=== PATIENT | female | born 1950 | race Caucasian/White ===

== ENCOUNTER → 2017-04-06 | Outpatient (CLI) | payer MEDICARE ==
[~2017-04-06] MED LIST: ACET-1600 PO; ASPI-496 PO; CALC0.25 PO; CALC0.5C PO; CARI250T PO; CARI350T14 PO; CETI10TA18 PO; CHOL5000 PO; CIPR500T87 PO; CYAN100014 PO; DIPH25CA61 PO; DOXE4VIA IV; EPOE3000 IV; EVE1000C3 PO; FERR210T PO; FLAX100029 PO; FOLI0.4T2 PO; IRON PO; LINA5TAB PO; MELA3TAB37 PO; METO50TA82 PO; MONT10TA6 PO; MULT-26 PO; MV-M1TAB16 PO; PYRI100T2 PO; SIMV20TA3 PO; SODI1TAB11 PO; SODIUM BICARBONATE PO; VITAMIN D3 PO; ZOLP10TA5 PO; ZOLPIDEM PO; [UNRECOGNIZED DRUG - OTHER] PO
== END | disposition home or self-care (01) ==
LOC: STAR 10:07
PROVIDERS: ATTEND Urology
DX: Z01.818 Encounter for other preprocedural examination (principal); R94.31 Abnormal electrocardiogram [ECG] [EKG]; N13.30 Unspecified hydronephrosis
CPT/HCPCS: 93005

== ENCOUNTER 2017-04-17 05:55 | Day surgery (SDC) | payer MEDICARE ==
[~2017-04-17] VITALS: Ht 175.3 cm; Wt 75.0 kg
[2017-04-17] MEDS ORDERED: SODIUM CHLORIDE 0.9% 1,000 ML IV SCH (06:27)
[2017-04-17 06:28] VITALS: BP 114/69
[2017-04-17] MEDS ORDERED: LIDOCAINE 1%, 2ML SQ PRN (07:00)
[2017-04-17] MEDS ORDERED: SCOPOLAMINE PATCH, 1.5MG PATCH.TD72 TD ONE ×2 (07:04)
[2017-04-17] MEDS ORDERED: FENTANYL PF 250 MCG/5ML ONE (07:26)
[2017-04-17] MEDS ORDERED: ONDANSETRON 2MG/ML, 2ML IVPush PRN (07:30)
[2017-04-17] MEDS ORDERED: HYDROmorphone 1 MG/ML, 1ML IV PRN (07:30)
[2017-04-17] MEDS ORDERED: ACETAMINOPHEN 325 MG TABLET PO PRN (07:30)
[2017-04-17] MEDS ORDERED: PROMETHAZINE 25 MG/ML, 1ML IV PRN (07:30)
[2017-04-17] MEDS ORDERED: OXYcodone 5 MG/5 ML ORAL.SOL UDC PO PRN (07:30)
[2017-04-17] MEDS ORDERED: HYDROcodone/APAP 7.5-325MG/15ML UDC PO PRN (07:30)
[2017-04-17] MEDS ORDERED: hydrALAzine 20 MG/ML, 1ML IV PRN (07:30)
[2017-04-17] MEDS ORDERED: LABETALOL 5MG/ML, 20ML IV PRN (07:30)
[2017-04-17] MEDS ORDERED: FENTANYL PF 100 MCG/2ML IV PRN (07:30)
[2017-04-17] MEDS ORDERED: EPHEDRINE 50 MG/ML, 1ML IVPush PRN (07:30)
[2017-04-17] MEDS ORDERED: METOCLOPRAMIDE 5 MG/ML, 2ML IV PRN (07:30)
[2017-04-17] MEDS ORDERED: PHENYLEPHRINE 10 MG/ML ONE (07:38)
[2017-04-17] MEDS ORDERED: PROPOFOL 10 MG/ML, 20ML ONE (07:38)
[2017-04-17] MEDS ORDERED: CEFAZOLIN 1,000 MG ONE (07:38)
[2017-04-17] MEDS ORDERED: PROMETHAZINE 25 MG/ML, 1ML ONE (08:23)
[2017-04-17] MEDS ORDERED: OXYcodone 5 MG/5 ML ORAL.SOL UDC ONE (08:56)
[2017-04-17] MEDS ORDERED: FENTANYL PF 100 MCG/2ML ONE (08:56)
== END 2017-04-17 10:30 | disposition home or self-care (01) ==
LOC: OUT 05:55
PROVIDERS: ATTEND Urology
DX: Z46.6 Encounter for fitting and adjustment of urinary device (principal); N13.30 Unspecified hydronephrosis; E11.22 Type 2 diabetes mellitus with diabetic chronic kidney disease; I12.0 Hypertensive chronic kidney disease with stage 5 chronic kidney disease or end stage renal disease; N18.6 End stage renal disease; Z99.2 Dependence on renal dialysis; E78.5 Hyperlipidemia, unspecified; E11.40 Type 2 diabetes mellitus with diabetic neuropathy, unspecified; G56.22 Lesion of ulnar nerve, left upper limb; N32.81 Overactive bladder; Z91.030 Bee allergy status; Z91.011 Allergy to milk products; Z91.040 Latex allergy status; Z91.048 Other nonmedicinal substance allergy status; J45.909 Unspecified asthma, uncomplicated; Z87.440 Personal history of urinary (tract) infections; Z98.84 Bariatric surgery status; Z90.710 Acquired absence of both cervix and uterus; Z98.890 Other specified postprocedural states; Z87.442 Personal history of urinary calculi; Z87.891 Personal history of nicotine dependence; Z72.89 Other problems related to lifestyle; Z82.49 Family history of ischemic heart disease and other diseases of the circulatory system; Z84.1 Family history of disorders of kidney and ureter
CPT/HCPCS: 36415; 52332; 74000; 76000; 80047; 82962; 85610; 85730; C2617; J0690; J2370; J2550; J2704; J3010; J3490; J7030; 76001

== ENCOUNTER → 2017-07-17 | Outpatient (CLI) | payer MEDICARE ==
[~2017-07-17] MED LIST changes: -MELA3TAB37 PO; +MELA3TAB62 PO
== END ==
LOC: STAR 11:49
PROVIDERS: ATTEND Internal Medicine Nephrology
DX: Z01.818 Encounter for other preprocedural examination (principal); R94.31 Abnormal electrocardiogram [ECG] [EKG]; N18.6 End stage renal disease
CPT/HCPCS: 93005

== ENCOUNTER → 2017-07-27 | Outpatient (CLI) | payer MEDICARE ==
[~2017-07-27] MED LIST changes: +REGADENOSON 0.4 MG/5 ML SYRINGE ONE
== END | disposition home or self-care (01) ==
LOC: CFH 07:12
PROVIDERS: ATTEND Internal Medicine Nephrology
DX: Z12.31 Encounter for screening mammogram for malignant neoplasm of breast (principal); Z01.818 Encounter for other preprocedural examination; N18.6 End stage renal disease; I45.10 Unspecified right bundle-branch block; E11.22 Type 2 diabetes mellitus with diabetic chronic kidney disease; I35.8 Other nonrheumatic aortic valve disorders; Z87.891 Personal history of nicotine dependence; Z80.3 Family history of malignant neoplasm of breast; Z94.0 Kidney transplant status
CPT/HCPCS: 78452; 93017; 93306; A9502; G0202; J2785

== ENCOUNTER 2017-09-14 07:27 | Day surgery (SDC) | payer MEDICARE ==
[~2017-09-14] VITALS: Ht 175.3 cm; Wt 80.7 kg
[~2017-09-14 07:27] MED LIST changes: -REGADENOSON 0.4 MG/5 ML SYRINGE ONE
[2017-09-14] MEDS ORDERED: LIDOCAINE 1%, 2ML ONE (08:14)
[2017-09-14 08:47] VITALS: BP 151/81
[2017-09-14] MEDS ORDERED: ACETAMINOPHEN 325 MG TABLET PO PRN (09:00)
[2017-09-14] MEDS ORDERED: ALBUTEROL/IPRATROPIUM 2.5MG/0.5MG, 3 ML NPPB PRN (09:00)
[2017-09-14] MEDS ORDERED: HYDROmorphone 1 MG/ML, 1ML IV PRN (09:00)
[2017-09-14] MEDS ORDERED: LIDOCAINE 1%, 2ML INFIL ONE (09:00)
[2017-09-14] MEDS ORDERED: PROMETHAZINE 25 MG/ML, 1ML IV PRN (09:00)
[2017-09-14] MEDS ORDERED: FENTANYL PF 100 MCG/2ML IV PRN (09:00)
[2017-09-14] MEDS ORDERED: MEPERIDINE/PF 25MG/0.5ML IVPush PRN (09:00)
[2017-09-14] MEDS ORDERED: MIDAZOLAM 1 MG/ML, 2ML IV PRN (09:00)
[2017-09-14] MEDS ORDERED: OXYcodone 5 MG/5 ML ORAL.SOL UDC PO PRN (09:00)
[2017-09-14] MEDS ORDERED: LABETALOL 5MG/ML, 20ML IV PRN (09:00)
[2017-09-14] MEDS ORDERED: hydrALAzine 20 MG/ML, 1ML IV PRN (09:00)
[2017-09-14] MEDS ORDERED: ONDANSETRON 2MG/ML, 2ML IVPush PRN (09:00)
[2017-09-14] MEDS ORDERED: SODIUM CHLORIDE 0.9% 1,000 ML IV SCH (09:00)
[2017-09-14] MEDS ORDERED: ONDANSETRON 2MG/ML, 2ML ONE (09:04)
[2017-09-14] MEDS ORDERED: PROPOFOL 10 MG/ML, 20ML ONE (09:04)
[2017-09-14 09:17] LABS: HEMATOCRIT 32.8 % (34.6-47.8); WHITE BLOOD COUNT 6.1 x10^3/uL (3.4-10)
[2017-09-14 09:20] LABS: ASPARTATE AMINO TRANSFERASE 15 U/L (15-37); BLOOD UREA NITROGEN 60 mg/dL (7-18)
== END 2017-09-14 10:30 ==
LOC: OUT 07:27
PROVIDERS: ATTEND Specialist
DX: D12.2 Benign neoplasm of ascending colon (principal); D12.8 Benign neoplasm of rectum; E78.5 Hyperlipidemia, unspecified; E11.22 Type 2 diabetes mellitus with diabetic chronic kidney disease; I12.0 Hypertensive chronic kidney disease with stage 5 chronic kidney disease or end stage renal disease; N18.6 End stage renal disease; Z98.890 Other specified postprocedural states; Z90.710 Acquired absence of both cervix and uterus; Z98.84 Bariatric surgery status; Z87.891 Personal history of nicotine dependence
CPT/HCPCS: 36415; 45380; 45385; 80053; 85025; 85610; 85730; 88305; J2405; J2704; J7030

== ENCOUNTER → 2017-11-15 | Outpatient (CLI) | payer MEDICARE ==
[~2017-11-15] MED LIST changes: -CALC0.5C PO; +CALC0.5C9 PO
[2017-11-15 09:37] LABS: BASOPHILS # (AUTO) 0.04 x10^3/uL (0-0.1); BASOPHILS % (AUTO) 1 % (0-1); EOSINOPHILS # (AUTO) 0.26 x10^3/uL (0-0.4); EOSINOPHILS % (AUTO) 5 % (1-7); LYMPHOCYTES # (AUTO) 0.99 x10^3/uL (1-3.4); LYMPHOCYTES % (AUTO) 18 % (22-44); MD NO; MEAN CORPUSCULAR HEMOGLOBIN 30.9 pg (27.0-34.8); MEAN CORPUSCULAR HGB CONC 33.3 g/dL (32.4-35.8); MEAN CORPUSCULAR VOLUME 92.8 fL (80-100); MEAN PLATELET VOLUME 7.4 fL (7.4-10.4); MONOCYTES # (AUTO) 0.46 x10^3/uL (0.2-0.8); MONOCYTES % (AUTO) 8 % (2-9); NEUTROPHILS # (AUTO) 3.85 x10^3/uL (1.8-6.8); NEUTROPHILS % (AUTO) 69 % (42-75); PLATELET COUNT 319 x10^3/uL (130-400); RED BLOOD COUNT 3.79 x10^6/uL (3.82-5.3); RED CELL DISTRIBUTION WIDTH 14.3 % (9.6-15.2)
[2017-11-15 09:44] LABS: CULTURE INDICATED? YES; MICROSCOPIC INDICATED
[2017-11-15 09:45] LABS: INTERNATIONAL NORMALIZED RATIO 0.92 (0.93-1.1); PROTHROMBIN TIME 9.6 Seconds (9.6-11.5)
[2017-11-15 09:52] LABS: ANION GAP 10 mmol/L (5-15); CHLORIDE 102 mmol/L (98-107)
[2017-11-15 09:58] LABS: ALANINE AMINOTRANSFERASE 19 U/L (12-78); ALKALINE PHOSPHATASE 163 U/L (45-117); BILIRUBIN,TOTAL 0.4 mg/dL (0.2-1.0); CREATININE 5.88 mg/dL (0.55-1.02)
== END ==
LOC: STAR 08:48
PROVIDERS: ATTEND Urology
DX: Z01.818 Encounter for other preprocedural examination (principal); N18.9 Chronic kidney disease, unspecified; N13.30 Unspecified hydronephrosis; R94.31 Abnormal electrocardiogram [ECG] [EKG]
CPT/HCPCS: 36415; 80053; 81001; 85025; 85610; 85730; 87086; 93005

== ENCOUNTER 2017-11-19 08:00 | Day surgery (SDC) | payer MEDICARE ==
[~2017-11-19] VITALS: Ht 170.2 cm; Wt 79.4 kg
[2017-11-19] MEDS ORDERED: LACTATED RINGERS 1,000 ML IV SCH (08:38)
[2017-11-19] MEDS ORDERED: LIDOCAINE 1%, 2ML ONE (08:39)
[2017-11-19] MEDS ORDERED: SODIUM CHLORIDE 0.9% 1,000 ML IV SCH (09:19)
[2017-11-19 09:24] VITALS: BP 146/71
[2017-11-19 10:12] LABS: ANION GAP 12 mmol/L (5-15); CHLORIDE 102 mmol/L (98-107); CREATININE 5.51 mg/dL (0.55-1.02)
[2017-11-19] MEDS ORDERED: MIDAZOLAM 1 MG/ML, 2ML ONE (10:30)
[2017-11-19] MEDS ORDERED: PROPOFOL 10 MG/ML, 20ML ONE (10:30)
[2017-11-19] MEDS ORDERED: LIDOCAINE-MPF 2% ,5ML ONE (10:30)
[2017-11-19] MEDS ORDERED: ONDANSETRON 2MG/ML, 2ML ONE (10:38)
[2017-11-19] MEDS ORDERED: DEXAMETHASONE 4 MG/ML, 1ML ONE ×2 (10:38)
[2017-11-19] MEDS ORDERED: CEFAZOLIN 1,000 MG ONE (10:41)
[2017-11-19] MEDS ORDERED: OMNIPAQUE 350 MG/ML, 50 ML BOTTLE IV ONE (11:07)
[2017-11-19] MEDS ORDERED: ONDANSETRON 2MG/ML, 2ML IVPush PRN (11:30)
[2017-11-19] MEDS ORDERED: ACETAMINOPHEN 325 MG TABLET PO PRN (11:30)
[2017-11-19] MEDS ORDERED: morphine SULFATE 10 MG/ML, 1ML IV PRN (11:30)
[2017-11-19] MEDS ORDERED: FENTANYL PF 100 MCG/2ML IV PRN (11:30)
[2017-11-19] MEDS ORDERED: HYDROcodone/APAP 7.5-325MG/15ML UDC PO PRN (11:30)
[2017-11-19] MEDS ORDERED: FENTANYL PF 100 MCG/2ML ONE (11:33)
[2017-11-19] MEDS ORDERED: OMNIPAQUE 350 MG/ML, 50 ML BOTTLE ONE (11:43)
[2017-11-19] MEDS ORDERED: LABETALOL 5MG/ML, 20ML ONE (12:09)
[2017-11-19] MEDS ORDERED: LABETALOL 5MG/ML, 20ML IVPush PRN (12:30)
== END 2017-11-19 14:10 ==
LOC: OUT 08:00
PROVIDERS: ATTEND Urology
DX: N13.30 Unspecified hydronephrosis (principal); E78.5 Hyperlipidemia, unspecified; E11.22 Type 2 diabetes mellitus with diabetic chronic kidney disease; I12.0 Hypertensive chronic kidney disease with stage 5 chronic kidney disease or end stage renal disease; J45.909 Unspecified asthma, uncomplicated; Z87.440 Personal history of urinary (tract) infections; Z99.2 Dependence on renal dialysis
CPT/HCPCS: 36415; 52310; 74420; 80048; C1758; C1769; J0690; J1100; J2250; J2405; J2704; J3010; J3490; J7030; Q9967

== ENCOUNTER 2018-06-28 08:01 | Inpatient (IN) | payer MEDICARE ==
[~2018-06-28] VITALS: Ht 175.3 cm; Wt 80.4 kg
[~2018-06-28 08:01] MED LIST changes: +ONDA4TAB10 PO
[2018-06-28] MEDS ORDERED: SODIUM CHLORIDE FLUSH 10ML SYR IVF ONE (08:30)
[2018-06-28] MEDS ORDERED: ONDANSETRON 2MG/ML, 2ML IVPush ONE (08:30)
[2018-06-28] MEDS ORDERED: ONDANSETRON ODT 4 MG ONE (08:45)
[2018-06-28] MEDS ORDERED: HYDROmorphone 2 MG/ML, 1ML ONE (08:47)
[2018-06-28] MEDS: HYDROmorphone 2 MG/ML, 1ML IVPush PRN ×2 (08:54→09:15)
[2018-06-28 09:05] LABS: MICROSCOPIC INDICATED
[2018-06-28 09:10] LABS: BASOPHILS # (AUTO) 0.03 x10^3/uL (0-0.1); BASOPHILS % (AUTO) 0 % (0-1); EOSINOPHILS # (AUTO) 0.11 x10^3/uL (0-0.4); EOSINOPHILS % (AUTO) 1 % (1-7); LYMPHOCYTES # (AUTO) 0.77 x10^3/uL (1-3.4); LYMPHOCYTES % (AUTO) 9 % (22-44); MD NO; MEAN CORPUSCULAR HEMOGLOBIN 30.6 pg (27.0-34.8); MEAN CORPUSCULAR HGB CONC 33.6 g/dL (32.4-35.8); MEAN CORPUSCULAR VOLUME 91.1 fL (80-100); MEAN PLATELET VOLUME 7.6 fL (7.4-10.4); MONOCYTES % (AUTO) 6 % (2-9); NEUTROPHILS # (AUTO) 6.92 x10^3/uL (1.8-6.8); NEUTROPHILS % (AUTO) 83 % (42-75); PLATELET COUNT 327 x10^3/uL (130-400); RED BLOOD COUNT 3.53 x10^6/uL (3.82-5.3); RED CELL DISTRIBUTION WIDTH 14.1 % (9.6-15.2)
[2018-06-28 09:13] LABS: CULTURE INDICATED? YES
[2018-06-28 09:53] LABS: CALCIUM 9.5 mg/dL (8.5-10.1)
[2018-06-28 09:58] LABS: ANION GAP 16 mmol/L (5-15); CHLORIDE 102 mmol/L (98-107); CREATININE 9.36 mg/dL (0.55-1.02)
[2018-06-28] MEDS ORDERED: CEFTRIAXONE PMX 1GM/50ML 50 ML IV ONE (10:00)
[2018-06-28 10:02] LABS: ALANINE AMINOTRANSFERASE 16 U/L (12-78); ALKALINE PHOSPHATASE 115 U/L (45-117); BILIRUBIN,TOTAL 0.4 mg/dL (0.2-1.0); TOTAL PROTEIN 8.7 g/dL (6.4-8.2)
[2018-06-28] MEDS ORDERED: CEFTRIAXONE PMX 1GM/50ML 50 ML ONE (10:19)
[2018-06-28] MEDS ORDERED: MONT10TA6 PO (12:05)
[2018-06-28] MEDS ORDERED: CINA30TA2 PO (12:06)
[2018-06-28] MEDS ORDERED: TRAM50TA2 PO (12:06)
[2018-06-28] MEDS ORDERED: CYAN1TAB29 PO (12:10)
[2018-06-28] MEDS ORDERED: CHOL5000 PO (12:11)
[2018-06-28] MEDS ORDERED: FERR140T2 PO (12:14)
[2018-06-28] MEDS ORDERED: SODIUM CHLORIDE 0.9% 1,000 ML IV SCH (12:33)
[2018-06-28 12:58] VITALS: BP 170/72
[2018-06-28] MEDS ORDERED: hydrALAzine 20 MG/ML, 1ML IV PRN (13:00)
[2018-06-28] MEDS ORDERED: ONDANSETRON ODT 4 MG PO PRN (13:00)
[2018-06-28] MEDS ORDERED: CEFTRIAXONE 1,000 MG in SODIUM CHLORIDE 0.9% 50 ML IV SCH (13:00)
[2018-06-28] MEDS ORDERED: ACETAMINOPHEN 325 MG TABLET PO PRN ×2 (13:00→15:30)
[2018-06-28] MEDS ORDERED: POLYETHYLENE GLYCOL 17 GM PACKET PO PRN (13:00)
[2018-06-28] MEDS: MONTELUKAST 10 MG TABLET PO SCH (13:00)
[2018-06-28] MEDS ORDERED: morphine SULFATE 10 MG/ML, 1ML IVPush PRN (13:00)
[2018-06-28] MEDS ORDERED: LABETALOL 5MG/ML, 20ML IVPush PRN (13:00)
[2018-06-28] MEDS ORDERED: ONDANSETRON 2MG/ML, 2ML IVPush PRN (13:00)
[2018-06-28] MEDS ORDERED: OXYcodone/APAP 5/325MG TABLET PO PRN (13:00)
[2018-06-28] MEDS ORDERED: DOCUSATE 100 MG CAPSULE PO PRN (13:00)
[2018-06-28] MEDS ORDERED: FENTANYL PF 250 MCG/5ML ONE (14:19)
[2018-06-28] MEDS ORDERED: PROPOFOL 10 MG/ML, 20ML ONE (14:20)
[2018-06-28] MEDS ORDERED: ONDANSETRON 2MG/ML, 2ML ONE ×2 (14:50→15:31)
[2018-06-28] MEDS ORDERED: PROPOFOL 50 ML ONE (15:01)
[2018-06-28] MEDS ORDERED: OMNIPAQUE 350 MG/ML, 50 ML BOTTLE INJ ONE (15:30)
[2018-06-28] MEDS ORDERED: MIDAZOLAM 1 MG/ML, 2ML IV PRN (15:30)
[2018-06-28] MEDS ORDERED: ONDANSETRON ODT 8 MG PO PRN (15:30)
[2018-06-28] MEDS ORDERED: OXYcodone 5 MG/5 ML ORAL.SOL UDC PO PRN (15:30)
[2018-06-28] MEDS ORDERED: PROMETHAZINE 25 MG SUPP PR PRN (15:30)
[2018-06-28] MEDS ORDERED: PROMETHAZINE 12.5 MG SUPP PR PRN (15:30)
[2018-06-28] MEDS ORDERED: MORPHINE SULFATE 4 MG/ML, 1ML IVPush PRN (15:30)
[2018-06-28] MEDS ORDERED: DIPHENHYDRAMINE 50 MG/ML, 1ML IVPush PRN (15:30)
[2018-06-28] MEDS ORDERED: PROMETHAZINE 25 MG/ML, 1ML IV PRN (15:30)
[2018-06-28] MEDS ORDERED: FENTANYL PF 100 MCG/2ML IV PRN (15:30)
[2018-06-28] MEDS ORDERED: OMNIPAQUE 350 MG/ML, 50 ML BOTTLE ONE (16:27)
[2018-06-28 16:30] VITALS: BP 154/73
[2018-06-28] MEDS: SODIUM CHLORIDE 0.9% 1,000 ML IV SCH (20:00)
[2018-06-28] MEDS ORDERED: ZOLPIDEM 10MG TABLET PO SCH (21:00)
[2018-06-28] MEDS ORDERED: LINAGLIPTIN 5 MG TAB PO SCH (21:00)
[2018-06-28 21:10] VITALS: BP 123/61
[2018-06-28] MEDS: SODIUM BICARBONATE 650 MG TABLET PO SCH (22:17)
[2018-06-28] MEDS: PHENAZOPYRIDINE 200 MG TABLET PO SCH (22:17)
[2018-06-28] MEDS: PYRIDOXINE 50MG TABLET PO SCH (22:20)
[2018-06-28] MEDS: FERROUS SULFATE 325 MG TABLET PO SCH (23:05)
[2018-06-29 00:18] VITALS: BP 123/68
[2018-06-29 04:19] VITALS: BP 152/74
[2018-06-29 05:20] LABS: ANION GAP 11 mmol/L (5-15); CHLORIDE 105 mmol/L (98-107)
[2018-06-29 05:21] LABS: CREATININE 9.77 mg/dL (0.55-1.02)
[2018-06-29 05:28] LABS: BASOPHILS # (AUTO) 0.03 x10^3/uL (0-0.1); BASOPHILS % (AUTO) 0 % (0-1); EOSINOPHILS # (AUTO) 0.23 x10^3/uL (0-0.4); EOSINOPHILS % (AUTO) 4 % (1-7); LYMPHOCYTES # (AUTO) 1.22 x10^3/uL (1-3.4); LYMPHOCYTES % (AUTO) 19 % (22-44); MD NO; MEAN CORPUSCULAR HEMOGLOBIN 31.1 pg (27.0-34.8); MEAN CORPUSCULAR HGB CONC 33.6 g/dL (32.4-35.8); MEAN CORPUSCULAR VOLUME 92.6 fL (80-100); MEAN PLATELET VOLUME 7.6 fL (7.4-10.4); MONOCYTES # (AUTO) 0.84 x10^3/uL (0.2-0.8); MONOCYTES % (AUTO) 13 % (2-9); NEUTROPHILS # (AUTO) 4.01 x10^3/uL (1.8-6.8); NEUTROPHILS % (AUTO) 63 % (42-75); PLATELET COUNT 269 x10^3/uL (130-400); RED BLOOD COUNT 2.95 x10^6/uL (3.82-5.3); RED CELL DISTRIBUTION WIDTH 14.1 % (9.6-15.2)
[2018-06-29 07:27] VITALS: BP 145/68
[2018-06-29] MEDS ORDERED: SODIUM POLYSTYRENE SULFONATE ORAL SUSP PO ONE (08:00)
[2018-06-29] MEDS: FERROUS SULFATE 325 MG TABLET PO SCH (08:52)
[2018-06-29] MEDS ORDERED: MULTIVITAMIN 1 TABLET PO SCH (09:00)
[2018-06-29] MEDS ORDERED: FOLIC ACID 1 MG TABLET PO SCH (09:00)
[2018-06-29] MEDS ORDERED: SIMVASTATIN 20 MG TABLET PO SCH (09:00)
[2018-06-29] MEDS ORDERED: SENNA/DOCUSATE TABLET PO SCH (09:00)
[2018-06-29] MEDS ORDERED: CINACALCET 30 MG TABLET PO SCH (09:00)
[2018-06-29] MEDS ORDERED: DIPHENHYDRAMINE 25 MG CAPSULE PO SCH (09:00)
[2018-06-29] MEDS: SODIUM CHLORIDE 0.9% 1,000 ML IV SCH (09:20)
[2018-06-29] MEDS: MONTELUKAST 10 MG TABLET PO SCH (10:09)
[2018-06-29] MEDS: PHENAZOPYRIDINE 200 MG TABLET PO SCH (10:09)
[2018-06-29] MEDS: SODIUM BICARBONATE 650 MG TABLET PO SCH (10:09)
[2018-06-29] MEDS: PYRIDOXINE 50MG TABLET PO SCH (10:09)
[2018-06-29] MEDS ORDERED: CEFTRIAXONE 1,000 MG in SODIUM CHLORIDE 0.9% 50 ML IV SCH (10:30)
[2018-06-29 10:56] LABS: ANION GAP 11 mmol/L (5-15); CALCIUM 8.9 mg/dL (8.5-10.1); CHLORIDE 106 mmol/L (98-107); CREATININE 9.78 mg/dL (0.55-1.02)
[2018-06-29] MEDS ORDERED: AMOX1TAB12 PO (14:05)
[2018-06-29] MEDS ORDERED: AMOXICILLIN/CLAV 875-125MG TABLET PO SCH (21:00)
== END 2018-06-29 15:45 | disposition home or self-care (01) | DRG 698 ==
LOC: ED 11:52 → 4NOR 11:53 → SUATTDRO 12:30 → ED 12:46 → 4NOR 12:46
PROVIDERS: ADMIT Family Medicine; ATTEND Family Medicine
PROC: 0TP98DZ Removal of Intraluminal Device from Ureter, Via Natural or Artificial Opening Endoscopic (ICD-10-PCS; 2018-06-28)
PROC: BT1D1ZZ Fluoroscopy of Right Kidney, Ureter and Bladder using Low Osmolar Contrast (ICD-10-PCS; 2018-06-28)
PROC: 0TCB8ZZ Extirpation of Matter from Bladder, Via Natural or Artificial Opening Endoscopic (ICD-10-PCS; 2018-06-28)
PROC: 0T768DZ Dilation of Right Ureter with Intraluminal Device, Via Natural or Artificial Opening Endoscopic (ICD-10-PCS; principal; 2018-06-28 15:00)
DX: T83.192A Other mechanical complication of indwelling ureteral stent, initial encounter (principal); N18.6 End stage renal disease; N13.6 Pyonephrosis; K80.20 Calculus of gallbladder without cholecystitis without obstruction; R31.9 Hematuria, unspecified; D63.1 Anemia in chronic kidney disease; E11.22 Type 2 diabetes mellitus with diabetic chronic kidney disease; Z99.2 Dependence on renal dialysis; Z87.442 Personal history of urinary calculi; Z91.030 Bee allergy status; Z91.011 Allergy to milk products; Z91.048 Other nonmedicinal substance allergy status; Z93.6 Other artificial openings of urinary tract status; Z80.0 Family history of malignant neoplasm of digestive organs; Z82.49 Family history of ischemic heart disease and other diseases of the circulatory system; Z80.8 Family history of malignant neoplasm of other organs or systems; Z84.1 Family history of disorders of kidney and ureter; Z76.82 Awaiting organ transplant status
CPT/HCPCS: 36415; 74176; 74420; 80048; 80053; 81001; 83735; 84100; 85025; 87040; 87086; 96365; 96366; 96375; 99285; J0696; J1170; J2405; J2704; J3010; Q0162; Q9967; C1758; C1769; C2617; J7030; Q0163

== ENCOUNTER → 2018-08-15 | Outpatient (CLI) | payer MEDICARE ==
[~2018-08-15] MED LIST changes: +AMOX1TAB12 PO; +CINA30TA2 PO; +CYAN1TAB29 PO; +FERR140T3 PO; +TRAM50TA2 PO
== END | disposition home or self-care (01) ==
LOC: CFH 11:09
PROVIDERS: ATTEND Urology
DX: N20.0 Calculus of kidney (principal); N13.30 Unspecified hydronephrosis
CPT/HCPCS: 76770

== ENCOUNTER → 2018-10-24 | Outpatient (CLI) | payer MEDICARE | END | disposition home or self-care (01) | LOC: RAD 12:14 | PROVIDERS: ATTEND Urology | DX: N20.9 Urinary calculus, unspecified (principal) | CPT/HCPCS: 74018 ==

== ENCOUNTER 2018-11-21 17:07 | Emergency (ER) | payer MEDICARE ==
[~2018-11-21] VITALS: Ht 175.3 cm; Wt 71.9 kg
--- NOTE | 2018-11-21 17:49 | NUR ---
[facility] TRANSPLANT TEAM TOLD HER TO GO TO ED TO GET ON ABX.
[2018-11-21 18:02] LABS: CULTURE INDICATED? YES; MICROSCOPIC INDICATED
[2018-11-21 18:07] LABS: MEAN CORPUSCULAR HEMOGLOBIN 31.8 pg (27.0-34.8); MEAN CORPUSCULAR HGB CONC 33.8 g/dL (32.4-35.8); MEAN CORPUSCULAR VOLUME 94.1 fL (80-100); PLATELET COUNT 273 x10^3/uL (130-400); RED BLOOD COUNT 3.72 x10^6/uL (3.82-5.3); RED CELL DISTRIBUTION WIDTH 14.4 % (9.6-15.2)
[2018-11-21 18:10] LABS: ALANINE AMINOTRANSFERASE 13 U/L (12-78); ALBUMIN 3.7 g/dL (3.4-5.0); ANION GAP 5 mmol/L (5-15); CHLORIDE 115 mmol/L (98-107); CREATININE 1.39 mg/dL (0.55-1.02)
[2018-11-21 18:12] LABS: ALKALINE PHOSPHATASE 209 U/L (45-117); BILIRUBIN,TOTAL 0.2 mg/dL (0.2-1.0); TOTAL PROTEIN 7.1 g/dL (6.4-8.2)
[2018-11-21] MEDS ORDERED: CEFTRIAXONE PMX 1GM/50ML 50 ML ONE (18:19)
[2018-11-21] MEDS ORDERED: CEFTRIAXONE 1,000 MG in SODIUM CHLORIDE 0.9% 50 ML IVPB ONE (18:30)
--- NOTE | 2018-11-21 18:30 | NUR ---
PT MEDICATED PER ORDER.
--- NOTE | 2018-11-21 18:44 | NUR ---
REPORT GIVEN TO DEVONTE STRICKLAND.
[2018-11-21] MEDS ORDERED: [UNRECOGNIZED DRUG - OTHER] PO (18:53)
[2018-11-21] MEDS ORDERED: TACR0.5C4 PO (18:53)
[2018-11-21 19:00] LABS: MD YES
[2018-11-21] MEDS ORDERED: SODIUM CHLORIDE FLUSH 10ML SYR IVF ONE (19:00)
[2018-11-21 19:10] VITALS: BP 161/74
[2018-11-21 19:18] LABS: BANDS%(MANUAL) 18 % (0-7); BASOS#(MANUAL) 0.04 x10^3/uL (0-0.1); BASOS% (MANUAL) 1 % (0-1); EOS% (MANUAL) 5 % (1-7); LYMPH#(MANUAL) 0.43 x10^3/uL (1-3.4); LYMPHS% (MANUAL) 11 % (22-44); METAMYELOCYTES# (MANUAL) 0.04 x10^3/uL (0-0); METAMYELOCYTES% (MANUAL) 1 % (0-1); MONOS#(MANUAL) 0.39 x10^3/uL (0.3-2.7); MONOS% (MANUAL) 10 % (2-9); SEG#(MANUAL) 2.11 x10^3/uL (1.8-6.8); SEGS% (MANUAL) 54 % (42-75)
[2018-11-21 19:19] LABS: <PLATELET ESTIMATE> ADEQUATE; <PLT MORPHOLOGY> NORMAL PLT MORPH; ANISOCYTOSIS 1+; OVALOCYTES 1+
== END 2018-11-21 19:23 | disposition home or self-care (01) ==
LOC: ED 18:14
DX: N30.00 Acute cystitis without hematuria (principal); E11.9 Type 2 diabetes mellitus without complications; I10 Essential (primary) hypertension
CPT/HCPCS: 36415; 80053; 81001; 83605; 85025; 87040; 87077; 87086; 87186; 93005; 96365; 99284; J0696

== ENCOUNTER 2019-05-26 09:39 | Outpatient (CLI) | payer MEDICARE | END 2019-05-26 23:59 | disposition home or self-care (01) | LOC: RAD 09:39 | PROVIDERS: ATTEND Internal Medicine Nephrology | DX: I12.9 Hypertensive chronic kidney disease with stage 1 through stage 4 chronic kidney disease, or unspecified chronic kidney disease (principal); N18.3 Chronic kidney disease, stage 3 (moderate); E61.1 Iron deficiency; D64.9 Anemia, unspecified; R35.8 Other polyuria; D89.9 Disorder involving the immune mechanism, unspecified; Z87.448 Personal history of other diseases of urinary system; Z94.0 Kidney transplant status | CPT/HCPCS: 78070; A9500 ==

== ENCOUNTER 2021-05-13 08:27 | Outpatient (CLI) | payer MEDICARE ==
[~2021-05-13 08:27] MED LIST changes: +CARI-389 PO; -CARI350T14 PO; -FOLI0.4T2 PO; +FOLI0.4T5 PO; -PYRI100T2 PO; +PYRI100T9 PO; +SIMV20TA19 PO; -SIMV20TA3 PO; +TACR0.5C4 PO; +[UNRECOGNIZED DRUG - OTHER] PO
== END 2021-05-13 23:59 | disposition home or self-care (01) ==
LOC: CFH 08:27
PROVIDERS: ATTEND Anesthesiology
DX: M81.0 Age-related osteoporosis without current pathological fracture (principal); E55.9 Vitamin D deficiency, unspecified; I12.9 Hypertensive chronic kidney disease with stage 1 through stage 4 chronic kidney disease, or unspecified chronic kidney disease; E11.22 Type 2 diabetes mellitus with diabetic chronic kidney disease; E61.1 Iron deficiency; D64.9 Anemia, unspecified; R35.8 Other polyuria; D89.9 Disorder involving the immune mechanism, unspecified; Z94.0 Kidney transplant status; N18.30 Chronic kidney disease, stage 3 unspecified
CPT/HCPCS: 77080